=== PATIENT | male | born 1975 | race Two or more races ===

== ENCOUNTER 2017-07-10 01:28 | Emergency (ER) | payer SELFPAY ==
[~2017-07-10] VITALS: Ht 188 cm; Wt 95.0 kg
[2017-07-10 03:34] VITALS: BP 116/74
== END 2017-07-10 03:41 | disposition home or self-care (01) ==
LOC: ER 01:28
DX: R07.9 Chest pain, unspecified (principal); F17.210 Nicotine dependence, cigarettes, uncomplicated
CPT/HCPCS: 71010; 93005; 99284; Z7610